=== PATIENT | male | born 1955 | race Caucasian/White ===

== ENCOUNTER 2016-12-16 17:06 | Observation (INO) | payer OTHER ==
[~2016-12-16] VITALS: Ht 185.4 cm; Wt 84.0 kg
[2016-12-16 17:07] VITALS: BP 129/68; PULSE 60; RESP 20; TEMP 98.5; O2SAT 99
--- NOTE | 2016-12-16 17:57 | PD ---
HPI Chief Complaint: Abdominal Pain Time Seen by Provider: 17:57 Travel History International Travel<30 days: No Contact w/Intl Traveler<30days: No Traveled to known affect area: No History of Present Illness HPI 61-year-old man with history of DVT and epilepsy ON LOVENOX presents to the ED for evaluation of approximately 7 hour history of right lower quadrant abdominal pain. Gradual onset after breakfast this morning. Described as constant, worsening throughout the course of the day, 6/10 on presentation. Patient denies fever, chills, decreased appetite, nausea, vomiting, melena, hematochezia, dysuria, back pain. He states that he has recently returned to exercising, running approximately 1 mile and doing calisthenics, including situps daily. He states that he noticed the pain after a few situps this morning. Patient is visiting from [place]. PFSH Past Medical History Hx Anticoagulant Therapy: Yes (LOVENOX (DVT)) Social History Tobacco Use: No Allergies-Medications (Allergen,Severity, Reaction): Coded Allergies: No Known Allergies (Unverified , 12/16/16) Reported Meds & Prescriptions Reported Meds & Active Scripts Active Reported Vitamin B-12 (Cyanocobalamin) 1,000 Mcg Tab 1,000 Mcg PO DAILY Folic Acid 5 Mg Cap 1 Mg PO DAILY Dilantin (Phenytoin Extended) 100 Mg Cap 400 Mg PO BID Keppra (Levetiracetam) 1,000 Mg Tab 1,500 Mg PO BID Review of Systems Except as stated in HPI: all other systems reviewed are Neg Physical Exam Narrative GENERAL: Well-nourished, well-developed white male, sitting up on the stretcher , in no acute distress. SKIN: Focused skin assessment warm/dry. HEAD: Normocephalic. EYES: No scleral icterus. No injection or drainage. NECK: Supple, trachea midline. No JVD or lymphadenopathy. CARDIOVASCULAR: Regular rate and rhythm without murmurs, gallops, or rubs. 2+ DP and radial pulses bilaterally. RESPIRATORY: Breath sounds clear and equal bilaterally. No accessory muscle use. GASTROINTESTINAL: Abdomen soft, nondistended. ++TTP in the RLQ and suprapubic areas. MUSCULOSKELETAL: No cyanosis. 2+ edema of RLE, patient states this is chronic. BACK: Nontender without obvious deformity. No CVA tenderness. Data Data Last Documented VS Vital Signs Date Time Temp Pulse Resp B/P Pulse Ox O2 Delivery O2 Flow Rate FiO2 12/16/16 19:58 98.1 66 18 136/63 96 12/16/16 18:45 Room Air Orders Complete Blood Count With Diff (12/16/16 18:04) Comprehensive Metabolic Panel (12/16/16 18:04) Prothrombin Time / Inr (Pt) (12/16/16 18:04) Act Partial Throm Time (Ptt) (12/16/16 18:04) Urinalysis - C+S If Indicated (12/16/16 18:04) Ct Abd/Pel W Iv Contrast(Rout) (12/16/16 18:04) Iv Access Insert/Monitor (12/16/16 18:04) Ecg Monitoring (12/16/16 18:04) Oximetry (12/16/16 18:04) NPO (12/16/16 18:04) Morphine Inj (Morphine Inj) (12/16/16 18:15) Ondansetron Inj (Zofran Inj) (12/16/16 18:15) Sodium Chlor 0.9% 1000 Ml Inj (Ns 1000 M (12/16/16 18:04) Sodium Chloride 0.9% Flush (Ns Flush) (12/16/16 18:15) Iohexol 350 Inj (Omnipaque 350 Inj) (12/16/16 19:02) Consult General Surgery (12/16/16 ) Admit Order (Ed Use Only) (12/16/16 20:35) Labs Laboratory Tests Test 12/16/16 12/16/16 18:45 20:00 White Blood Count 8.0 TH/MM3 Red Blood Count 4.15 MIL/MM3 Hemoglobin 13.1 GM/DL Hematocrit 40.1 % Mean Corpuscular Volume 96.4 FL Mean Corpuscular Hemoglobin 31.5 PG Mean Corpuscular Hemoglobin 32.7 % Concent Red Cell Distribution Width 14.1 % Platelet Count 138 TH/MM3 Mean Platelet Volume 10.0 FL Neutrophils (%) (Auto) 77.0 % Lymphocytes (%) (Auto) 14.8 % Monocytes (%) (Auto) 6.4 % Eosinophils (%) (Auto) 1.1 % Basophils (%) (Auto) 0.7 % Neutrophils # (Auto) 6.1 TH/MM3 Lymphocytes # (Auto) 1.2 TH/MM3 Monocytes # (Auto) 0.5 TH/MM3 Eosinophils # (Auto) 0.1 TH/MM3 Basophils # (Auto) 0.1 TH/MM3 CBC Comment DIFF FINAL Differential Comment Prothrombin Time 11.4 SEC Prothromb Time International 1.0 RATIO Ratio Activated Partial 21.5 SEC Thromboplast Time Sodium Level 140 MEQ/L Potassium Level 4.1 MEQ/L Chloride Level 104 MEQ/L Carbon Dioxide Level 26.9 MEQ/L Anion Gap 9 MEQ/L Blood Urea Nitrogen 18 MG/DL Creatinine 0.81 MG/DL Estimat Glomerular Filtration 97 ML/MIN Rate Random Glucose 89 MG/DL Calcium Level 9.1 MG/DL Total Bilirubin 0.3 MG/DL Aspartate Amino Transf 34 U/L (AST/SGOT) Alanine Aminotransferase 27 U/L (ALT/SGPT) Alkaline Phosphatase 105 U/L Total Protein 7.6 GM/DL Albumin 4.2 GM/DL Urine Color YELLOW Urine Turbidity CLEAR Urine pH 7.0 Urine Specific [place] 1.050 Urine Protein TRACE mg/dL Urine Glucose (UA) NEG mg/dL Urine Ketones 10 mg/dL Urine Occult Blood NEG Urine Nitrite NEG Urine Bilirubin NEG Urine Urobilinogen LESS THAN 2.0 MG/DL Urine Leukocyte Esterase NEG Urine RBC LESS THAN 1 /hpf Urine WBC LESS THAN 1 /hpf Urine Mucus FEW /lpf Microscopic Urinalysis Comment CULT NOT INDICATED MDM Medical Decision Making Medical Screen Exam Complete: Yes Emergency Medical Condition: Yes Differential Diagnosis muscle strain versus musculoskeletal pain versus appendicitis versus UTI versus nephroureterolithiasis versus other Narrative Course 61-year-old man with history of DVT and epilepsy ON LOVENOX presents to the ED for evaluation of approximately 7 hour history of right lower quadrant abdominal pain. Gradual onset after breakfast this morning. Described as constant, worsening throughout the course of the day, 01/19 on presentation. Patient denies fever, chills, decreased appetite, nausea, vomiting, melena, hematochezia, dysuria, back pain. He states that he has recently returned to exercising, running approximately 1 mile and doing calisthenics, including situps daily. He states that he noticed the pain after a few situps this morning. Patient is visiting from [place]. Vitals reviewed. Physical exam reveals a nontoxic appearing white male in no acute distress. There is tenderness in the suprapubic and right lower quadrant areas. IV is established. Patient was placed on continuous monitoring. He was administered a liter of normal saline, 4 mg morphine and 4 mg Zofran IV. CBC: Hgb 13.1 CMP: Within normal limits Coags: INR 1.0 UA: no culture indicated CT of the abdomen: 1. Right-sided lower rectus hematoma measuring up to 6.6 cm in AP diameter and over 13 cm in length. 2. Inferior vena cava filter present. 3. Mild constipation. I discussed the results of the workup with Dr. Lozano. Given that the patient is anticoagulated, she recommends admission to follow the hematoma and plan for anticoagulation. I spoke with Dr. Jaswinder Jeffries, the medical practitioners general surgeon, who is agreeable to this plan. I discussed this plan with the patient, who is agreeable to admission. Call placed to [facility]. Dr. Mcdonald agrees to accept the patient to the medicine service. Please see medicine and surgery notes for disposition. Diagnosis Primary Impression: Traumatic hematoma of abdominal wall Qualified Code: S30.1XXA - Traumatic hematoma of abdominal wall, initial encounter Carrie Tan December 16, 2016 17:57
[2016-12-16] MEDS ORDERED: SODIUM CHLOR 0.9% 1000 ML INJ 1,000 ML IV SCH (18:04)
[2016-12-16] MEDS ORDERED: MORPHINE SULFATE 4 MG/ML INJ IV PUSH ONE (18:15)
[2016-12-16] MEDS ORDERED: ONDANSETRON HCL 4 MG/2 ML VIAL IVP ONE (18:15)
[2016-12-16] MEDS ORDERED: SODIUM CHLORIDE 0.9% FLUSH 10 ML FLUSH IV FLUSH PRN ×2 (18:15→21:00)
[2016-12-16] MEDS ORDERED: FOLI5CAP PO (18:18)
[2016-12-16] MEDS ORDERED: DILA100C PO (18:18)
[2016-12-16] MEDS ORDERED: VITA10002 PO (18:18)
[2016-12-16] MEDS ORDERED: KEPP10002 PO (18:18)
[2016-12-16 18:45] VITALS: RESP 18; O2SAT 100
[2016-12-16] MEDS ORDERED: IOHEXOL 350 MG/ML 10 ML VIAL (for RAD DIAG) IV ONE (19:02)
[2016-12-16 19:10] LABS: AUTOMATED NEUTROPHIL # 6.1 TH/MM3 (1.8-7.7); BASOPHIL # 0.1 TH/MM3 (0-0.2); BASOPHIL % 0.7 % (0.0-2.0); EOSINOPHIL # 0.1 TH/MM3 (0-0.4); EOSINOPHIL % 1.1 % (0.0-4.0); HEMATOCRIT 40.1 % (39.0-51.0); LYMPH % 14.8 % (9.0-44.0); LYMPHOCYTE # 1.2 TH/MM3 (1.0-4.8); MEAN CELL VOLUME 96.4 FL (80.0-100.0); MEAN CORPUSCULAR HEMOGLOBIN 31.5 PG (27.0-34.0); MEAN CORPUSCULAR HGB CONC 32.7 % (32.0-36.0); MONO % 6.4 % (0.0-8.0); PLATELET COUNT 138 TH/MM3 (150-450); RED BLOOD COUNT 4.15 MIL/MM3 (4.50-5.90); RED CELL DISTRIBUTION WIDTH 14.1 % (11.6-17.2)
[2016-12-16 19:23] LABS: HEMO FLAGS DIFF FINAL
[2016-12-16 19:25] LABS: APTT (PATIENT) 21.5 SEC (24.3-30.1); PROTHROMBIN TIME - PATIENT 11.4 SEC (9.8-11.6)
[2016-12-16 19:33] LABS: ANION GAP 9 MEQ/L (5-15); AST (GOT) 34 U/L (15-37); BICARBONATE 26.9 MEQ/L (21.0-32.0); BLOOD UREA NITROGEN 18 MG/DL (7-18); CHLORIDE 104 MEQ/L (98-107); GLOMERULAR FILTRATION RATE 97 ML/MIN (>89); POTASSIUM 4.1 MEQ/L (3.5-5.1); SODIUM (NA) 140 MEQ/L (136-145)
[2016-12-16 19:36] LABS: ALKALINE PHOSPHATASE 105 U/L (45-117); ALT (GPT) 27 U/L (12-78); TOTAL BILIRUBIN ADULT 0.3 MG/DL (0.2-1.0)
--- NOTE | 2016-12-16 19:38 | RADRPT ---
EXAM DATE/TIME: 12/16/2016 19:05 [facility] COMPARISON: No previous studies available for comparison. INDICATIONS : Right lower abdominal pain. IV CONTRAST: 96 cc Omnipaque 350 (iohexol) IV ORAL CONTRAST: No oral contrast ingested. RADIATION DOSE: 7.47 CTDIvol (mGy) MEDICAL HISTORY : None SURGICAL HISTORY : None. ENCOUNTER: Initial ACUITY: 1 day PAIN SCALE: 6/10 LOCATION: Right lower quadrant TECHNIQUE: Volumetric scanning of the abdomen and pelvis was performed. Using automated exposure control and ad justment of the mA and/or kV according to patient size, radiation dose was kept as low as reasonably achievable to obtain optimal diagnostic quality images. FINDINGS: There is a rectus hematoma in the lower right rectus muscle measuring up to 6.6 cm in thickness and e xtending over a length of about 13 cm. Lung bases are clear. No acute findings in the liver, spleen, adrenals, kidneys or pancreas. Inferior vena cava filter is noted. Mild constipation. No free intraperitoneal fluid. No free air. CONCLUSION: 1. Right-sided lower rectus hematoma measuring up to 6.6 cm in AP diameter and over 13 cm in length. 2. Inferior vena cava filter present. 3. Mild constipation. Sergio Polanco MD on December 16, 2016 at 19:32 Board Certified Radiologist. This report was verified electronically.
[2016-12-16 19:58] VITALS: BP 136/63; PULSE 66; RESP 18; TEMP 98.1; O2SAT 96
[2016-12-16 20:33] LABS: BLOOD, URINE NEG (NEG); COMMENT (UR) CULT NOT INDICATED; CULTURE IF INDICATED CULT NOT INDICATED; GLUCOSE,URINE NEG (NEG); KETONE, URINE 10 mg/dL (NEG); MUCUS URINE FEW /lpf (OCC); NITRITE,URINE NEG (NEG); URINE COLOR YELLOW (YELLW/STRAW)
[2016-12-16] MEDS ORDERED: ONDANSETRON HCL 4 MG/2 ML VIAL IVP PRN (21:00)
[2016-12-16] MEDS ORDERED: NALOXONE HCL 0.4 MG/ML AMP IV PRN (21:00)
[2016-12-16] MEDS: SODIUM CHLORIDE 0.9% FLUSH 10 ML FLUSH IV FLUSH SCH (21:00)
--- NOTE | 2016-12-16 21:25 | HHI.HP ---
[facility] Service [facility] Primary Care Physician No Primary Care Physician Admission Diagnosis abdominal wall hematoma Diagnoses: (1) Hematoma of abdominal wall Chief Complaint: Right lower quadrant abdominal pain Travel History International Travel<30 Days: No Contact w/Intl Traveler <30 Da: No Traveled to Known Affected Are: No History of Present Illness Mr. 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 CT abd/pelvis showed right-sided lower rectus hematoma measuring up to 6.6 cm in AP diameter and over 13 cm in length. The patient is seen in the emergency room. He states that he recently started exercising and had done some sit ups on Saturday, , and Saturday. He took Saturday off because he flew to [place] from [place]. This morning, he did one sit up and experienced severe right lower quadrant pain. He was unable to perform any more as the day progressed, so did the pain until became severe enough for him to seek emergency medical treatment. He denies any accompanying nausea, vomiting, diarrhea, rash or black stools, syncope, chest pain, dizziness , or shortness of breath. 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 He has had multiple episodes of DVTs despite treatment. Coumadin was started but he was unable to be treated therapeutically as levels never increased despite increased dosing of Coumadin. Therefore, he was placed on Lovenox 100 mg subq daily and has been taking this for 10 years. He also had an IVC filter placed. 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 He is status post right temporal lobectomy for seizures. He did not require neurosurgery for the traumatic brain injury itself. He also underwent splenectomy following the fall. He says he is up-to- date on all of his vaccinations including pneumonia shot. He denies any history of hypertension, diabetes mellitus, coronary artery disease, congestive heart failure, atrial fibrillation, COPD or asthma, liver or kidney problems, or CVA. Keppra 500 mg tabs two in a.m and one in p.m. Dilantin 100 mg tabs two in a.m. and two in p.m. Lovenox 100 mg daily . Review of Systems Except as stated in HPI: all other systems reviewed are Neg Past Family Social History Past Medical History Epilepsy following traumatic brain injury 1989 Bilateral DVTs - multiple episodes . Past Surgical History Right temporal lobectomy tracheostomy PEG tube IVC filter placement Splenectomy . Reported Medications Keppra 500 mg tabs two in a.m and one in p.m. Dilantin 100 mg tabs two in a.m. and two in p.m. Lovenox 100 mg daily . Allergies: Coded Allergies: No Known Allergies (Unverified , 12/16/16) Active Ordered Medications Current Medications Morphine Sulfate (Morphine Inj) 4 mg ONCE ONCE IV PUSH Last administered on 19:38; Start 12/16/16 at 18:15; Stop 12/16/16 at 18:16; Status DC Ondansetron HCl 4 mg 4 mg ONCE ONCE IVP Last administered on 12/16/16 19:38; Start 12/16/16 at 18:15; Stop 12/16/16 at 18:16; Status DC Sodium Chloride (NS 1000 ml Inj) 1,000 ml @ 1,000 mls/hr Q1H IV Last administered on 12/16/16 19:37; Start 12/16/16 at 18:04; Stop 12/16/16 at 19:03; Status DC Sodium Chloride (NS Flush) 2 ml UNSCH PRN IV FLUSH FLUSH AFTER USING IV ACCESS ; Start 12/16/16 at 18:15 Iohexol (Omnipaque 350 Inj) 96 ml STK-MED ONCE IV Last administered on 19:02; Start 12/16/16 at 19:02; Stop 12/16/16 at 19:03; Status DC Sodium Chloride (NS Flush) 2 ml UNSCH PRN IV FLUSH FLUSH AFTER USING IV ACCESS ; Start 12/16/16 at 21:00; Status UNV Sodium Chloride (NS Flush) 2 ml BID IV FLUSH ; Start 12/16/16 at 21:00; Status UNV Ondansetron HCl (Zofran Inj) 4 mg Q6H PRN IVP NAUSEA OR VOMITING; Start at 21:00; Status UNV Naloxone HCl (Narcan Inj) 0.4 mg UNSCH PRN IV SEE LABEL COMMENTS; Start at 21:00; Status UNV Family History denies any significant family medical history; grandmother with history of blood clot . Social History Smoking - quit 40 years ago Alcohol - quit drinking 40 years ago - drank socially Illicit Drugs - denies Just arrived 12/15 and leaving 12/22 . Physical Exam Vital Signs Vital Signs Date Time Temp Pulse Resp B/P Pulse Ox O2 Delivery O2 Flow Rate FiO2 12/16/16 19:58 98.1 66 18 136/63 96 12/16/16 18:45 18 100 Room Air 12/16/16 17:07 98.5 60 20 129/68 99 Room Air Physical Exam GENERAL: This is a pleasant, well-nourished, well-developed patient, in no apparent distress. SKIN: No rashes, ecchymoses or lesions. Cool and dry. HEAD: Atraumatic. Normocephalic. EYES: No scleral icterus. No injection or drainage. ENT: Nose without bleeding, purulent drainage. NECK: Trachea midline. No JVD or lymphadenopathy. CARDIOVASCULAR: Regular rate and rhythm without murmurs, gallops, or rubs. RESPIRATORY: Clear to auscultation. Breath sounds equal bilaterally. No wheezes , rales, or rhonchi. lower leg with trace pitting edema; bilateral legs with swelling GASTROINTESTINAL: Abdomen normal bowel sounds, soft, nondistended. No guarding. MUSCULOSKELETAL: Extremities without clubbing, cyanosis. No calf tenderness. NEUROLOGICAL: Awake and alert. Motor and sensory grossly within normal limits. Speech stutters. Some difficulty recalling medication regimen. . Laboratory Laboratory Tests Test 12/16/16 12/16/16 18:45 20:00 White Blood Count 8.0 Red Blood Count 4.15 Hemoglobin 13.1 Hematocrit 40.1 Mean Corpuscular Volume 96.4 Mean Corpuscular Hemoglobin 31.5 Mean Corpuscular Hemoglobin 32.7 Concent Red Cell Distribution Width 14.1 Platelet Count 138 Mean Platelet Volume 10.0 Neutrophils (%) (Auto) 77.0 Lymphocytes (%) (Auto) 14.8 Monocytes (%) (Auto) 6.4 Eosinophils (%) (Auto) 1.1 Basophils (%) (Auto) 0.7 Neutrophils # (Auto) 6.1 Lymphocytes # (Auto) 1.2 Monocytes # (Auto) 0.5 Eosinophils # (Auto) 0.1 Basophils # (Auto) 0.1 CBC Comment DIFF FINAL Differential Comment Prothrombin Time 11.4 Prothromb Time International 1.0 Ratio Activated Partial 21.5 Thromboplast Time Sodium Level 140 Potassium Level 4.1 Chloride Level 104 Carbon Dioxide Level 26.9 Anion Gap 9 Blood Urea Nitrogen 18 Creatinine 0.81 Estimat Glomerular Filtration 97 Rate Random Glucose 89 Calcium Level 9.1 Total Bilirubin 0.3 Aspartate Amino Transf 34 (AST/SGOT) Alanine Aminotransferase 27 (ALT/SGPT) Alkaline Phosphatase 105 Total Protein 7.6 Albumin 4.2 Urine Color YELLOW Urine Turbidity CLEAR Urine pH 7.0 Urine Specific [place] 1.050 Urine Protein TRACE Urine Glucose (UA) NEG Urine Ketones 10 Urine Occult Blood NEG Urine Nitrite NEG Urine Bilirubin NEG Urine Urobilinogen LESS THAN 2.0 Urine Leukocyte Esterase NEG Urine RBC LESS THAN 1 Urine WBC LESS THAN 1 Urine Mucus FEW Microscopic Urinalysis Comment CULT NOT INDICATED Result Diagram: 12/16/16 18412/16/16 184 Imaging Last Impressions Abdomen/Pelvis CT 12/16/161803 Signed Impressions: Service Date/Time: Friday, December 16, 2016 19:05 - CONCLUSION: 1. Right-sided lower rectus hematoma measuring up to 6.6 cm in AP diameter and over 13 cm in length. 2. Inferior vena cava filter present. 3. Mild constipation. Sergio Polanco MD . Assessment and Plan Problem List: (1) Hematoma of abdominal wall ICD Code: S30.1XXA Status: Acute (2) Seizures ICD Code: R56.9 Status: Acute (3) History of DVT (deep vein thrombosis) ICD Code: Z86.718 Status: Resolved Assessment and Plan Mr. 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 CT abd/pelvis showed right-sided lower rectus hematoma measuring up to 6.6 cm in AP diameter and over 13 cm in length. Hematoma of rectus muscle - exact etiology is uncertain but patient reports pain in right lower abdomen started after performing a sit up today - serial H&Hs, follow trends - transfuse if necessary - general surgery consulted - PA in ER spoke with Dr. Jeffries - will see in a.m. - monitor vital signs every 4 hours History of bilateral lower extremity DVTs - Has IVC filter - will need to hold Lovenox for now due to rectus muscle hematoma Seizures - resume home antiepileptic medications Written by Hui Biggs, acting as scribe for Dr. Mcdonald on 12/16/16 at 21:23. .This note was transcribed by scribe [Hui Biggs]. I, Dr. Isabell Mcdonald personally performed the history, physical exam, and medical decision making; and confirmed the accuracy of the information in the transcribed note. Authenticated by Dr. Isabell Mcdonald on 12/16/16 at 21:23. Discussed Condition With Patient and ER PA . Problem Qualifiers (1) Hematoma of abdominal wall: Qualified Code: S30.1XXA - Hematoma of abdominal wall, initial encounter Hui Biggs December 16, 2016 21:25 Isabell Mcdonald MD December 17, 2016 07:08
[2016-12-16 21:37] VITALS: BP 113/57
[2016-12-16 22:06] VITALS: BP 137/60; PULSE 78; RESP 20; TEMP 97.6; O2SAT 99
[2016-12-16 23:14] VITALS: PULSE 65
[2016-12-17] VITALS (8 sets, daily range): BP systolic 101–137; BP diastolic 57–84; PULSE 60–96; RESP 16–22; TEMP 97.6–99.2; O2SAT 95–99
[2016-12-17] MEDS: levETIRAcetam 500 MG TAB PO SCH ×3 (00:53→21:34)
[2016-12-17 04:11] LABS: AUTOMATED NEUTROPHIL # 3.8 TH/MM3 (1.8-7.7); BASOPHIL % 0.7 % (0.0-2.0); EOSINOPHIL # 0.1 TH/MM3 (0-0.4); EOSINOPHIL % 1.2 % (0.0-4.0); HEMO FLAGS DIFF FINAL; LYMPH % 28.9 % (9.0-44.0); LYMPHOCYTE # 1.9 TH/MM3 (1.0-4.8); MEAN CELL VOLUME 96.4 FL (80.0-100.0); MEAN CORPUSCULAR HEMOGLOBIN 32.7 PG (27.0-34.0); MEAN CORPUSCULAR HGB CONC 33.9 % (32.0-36.0); MONO % 10.1 % (0.0-8.0); NEUT % 59.1 % (16.0-70.0); PLATELET COUNT 161 TH/MM3 (150-450); RED BLOOD COUNT 3.52 MIL/MM3 (4.50-5.90); RED CELL DISTRIBUTION WIDTH 13.9 % (11.6-17.2); WHITE BLOOD COUNT 6.4 TH/MM3 (4.0-11.0)
[2016-12-17 04:33] LABS: BICARBONATE 27.7 MEQ/L (21.0-32.0); POTASSIUM 3.6 MEQ/L (3.5-5.1)
--- NOTE | 2016-12-17 04:46 | MB ---
cc: WILSON HERNÁNDEZ MD DATE OF CONSULTATION 12/16/2016 REASON FOR CONSULTATION Abdominal pain, abdominal wall hematoma. HISTORY OF PRESENT ILLNESS The patient is a 61-year-old male with several medical issues including history of seizures, history of DVT, currently on Lovenox for multiple DVTs, currently with IVC filter. The patient complains of abdominal pain of acute onset which started after doing several sit-ups to the right lower abdomen. The patient states his pain was initially an 8/10 and it feels better, is a 4/10 now with IV pain medication. It is worse with moving and palpation, better when lying still. He has never had pain quite this severe before and came to emergency department for further evaluation including CT scan with showing of rectus right-sided abdominal hematoma, 6 cm x 13 cm. Surgery was consulted for further evaluation. On my exam the patient's vital signs were stable. His hemoglobin was 13.1 and his coags are within normal limits. He is stating continued pain but that does improve with medication. CT exam reviewed by myself without obvious extravasation of contrast. Again, the patient is hemodynamically stable. The patient does state his pain is somewhat severe but is improving. The pain radiates on the right side. The patient denies fevers, chills, nausea or vomiting. PAST MEDICAL HISTORY 1. Seizures. 2. Epilepsy. 3. Multiple DVTs. PAST SURGICAL HISTORY 1. Right temporal lobectomy. 2. Tracheostomy. 3. PEG. 4. IVC filter. 5. Splenectomy. MEDICATIONS See EMR. ALLERGIES No known drug allergies. FAMILY HISTORY Denies diabetes or hypertension. Grandmother with history of DVT. SOCIAL HISTORY Distant history of smoking, quit 40 years ago. Quit EtOH 40 years ago. Denies IVDA. REVIEW OF SYSTEMS GENERAL: The patient denies headaches. HEENT: Denies eye pain, ear pain. NECK: Denies swelling or pain. RESPIRATIONS: No noted cough or wheeze. CARDIAC: Denies palpitations or chest pain. ABDOMEN: Complains of abdominal pain. Denies nausea, vomiting. HEMATOLOGIC: Coagulopathy. DVT. ENDOCRINE: Denies polyuria, polydipsia. : Denies dysuria or hematuria. INTEGUMENT: Denies obvious skin masses or lesions. PHYSICAL EXAMINATION GENERAL: The patient in no acute distress. VITAL SIGNS: Temperature 98.1, pulse 66, respirations 18, blood pressure 136/63, pulse ox 96% on room air. HEENT: PERRLA, EOMI. NECK: Supple. Trachea midline. Well-healed tracheostomy scar. LUNGS: Bilateral expansion. Clear. HEART: S1-S2 regular. ABDOMEN: Soft. Positive tenderness to palpation right-sided rectus. No rebound or guarding. EXTREMITIES: Bilateral lower extremity edema. Warm, well-perfused. NEUROLOGIC: GCS of 15. Moving all extremities. PSYCH: History of seizure. Good insight. LABORATORY AND DIAGNOSTIC DATA WBC is 8, hemoglobin 13.1, hematocrit 44.1, platelets 138. PT is 1.4, INR is 1, PTT 21.5. Sodium 140, potassium 4.1, chloride 104. BUN is 18, creatinine 0.81, AST 34, ALT 27, alk phos 105, albumin 4.2. IMAGING STUDIES CT scan reviewed by myself - Right-sided rectus hematoma 6.6 x 13 cm, filter present. Stool in colon. No obvious extravasation. ASSESSMENT The patient is a 61-year-old male with several medical issues - History of multiple DVTs on Lovenox, now with rectus hematoma. PLAN 1. After a full clinical and radiologic and laboratory workup, the patient with above-named issues including abdominal rectus hematoma at this point. We will trial nonoperative management, observation, abdominal exams. We will continue to monitor blood levels and coags for evidence of further bleeding. As long as the patient stays stable, this will likely resolve and resorb on its own. Again, we will continue to monitor this closely. This was discussed with the patient in detail. 2. The patient can restart his seizure medications. 3. Hold Lovenox for now. MD JON Sewell/JOSEMANUEL /11:05 PM /4:32 AM
--- NOTE | 2016-12-17 07:51 | HHI.PR ---
Subjective Remarks resting comfortably with no distress. abdominal pain is mild. no other complaints. Objective Vitals Vital Signs Date Time Temp Pulse Resp B/P Pulse Ox O2 Delivery O2 Flow Rate FiO2 12/17/16 04:00 98.0 61 20 111/61 99 12/17/16 00:20 97.6 78 20 137/60 99 12/16/16 23:14 65 12/16/16 22:06 97.6 78 20 137/60 99 12/16/16 21:37 70 16 113/57 98 12/16/16 19:58 98.1 66 18 136/63 96 12/16/16 18:45 18 100 Room Air 12/16/16 17:07 98.5 60 20 129/68 99 Room Air Result Diagram: 12/17/16 0343 12/17/16 0343 Imaging Last Impressions Abdomen/Pelvis CT 12/16/16 1804 Signed Impressions: Service Date/Time: Friday, December 16, 2016 19:05 - CONCLUSION: 1. Right-sided lower rectus hematoma measuring up to 6.6 cm in AP diameter and over 13 cm in length. 2. Inferior vena cava filter present. 3. Mild constipation. Sergio Polanco MD Objective Remarks GENERAL: This is a well-nourished, well-developed patient, in no apparent distress. CARDIOVASCULAR: Regular rate and regular rhythm without murmurs, gallops, or rubs. RESPIRATORY: Clear to auscultation. Breath sounds equal bilaterally. No wheezes , rales, or rhonchi. GASTROINTESTINAL: mild generalized abdominal tenderness MUSCULOSKELETAL: Extremities without clubbing, cyanosis, or edema. NEURO: Alert & Oriented x4 to person, place, time, situation. Moves all ext x4 Procedures none Medications and IVs Current Medications Morphine Sulfate (Morphine Inj) 4 mg ONCE ONCE IV PUSH Last administered on 19:38; Start 12/16/16 at 18:15; Stop 12/16/16 at 18:16; Status DC Ondansetron HCl 4 mg 4 mg ONCE ONCE IVP Last administered on 12/16/16 19:38; Start 12/16/16 at 18:15; Stop 12/16/16 at 18:16; Status DC Sodium Chloride (NS 1000 ml Inj) 1,000 ml @ 1,000 mls/hr Q1H IV Last administered on 12/16/16 19:37; Start 12/16/16 at 18:04; Stop 12/16/16 at 19:03; Status DC Sodium Chloride (NS Flush) 2 ml UNSCH PRN IV FLUSH FLUSH AFTER USING IV ACCESS ; Start 12/16/16 at 18:15; Stop 12/16/16 at 21:04; Status DC Iohexol (Omnipaque 350 Inj) 96 ml STK-MED ONCE IV Last administered on 19:02; Start 12/16/16 at 19:02; Stop 12/16/16 at 19:03; Status DC Sodium Chloride (NS Flush) 2 ml UNSCH PRN IV FLUSH FLUSH AFTER USING IV ACCESS ; Start 12/16/16 at 21:00 Sodium Chloride (NS Flush) 2 ml BID IV FLUSH ; Start 12/16/16 at 21:00 Ondansetron HCl (Zofran Inj) 4 mg Q6H PRN IVP NAUSEA OR VOMITING; Start at 21:00 Naloxone HCl (Narcan Inj) 0.4 mg UNSCH PRN IV SEE LABEL COMMENTS; Start at 21:00 Levetriacetam (Keppra) 500 mg HS PO Last administered on 12/17/16 00:53; Start 12/17/16 at 00:30 Levetriacetam (Keppra) 1,000 mg DAILY PO ; Start 12/17/16 at 09:00 Phenytoin (Dilantin) 100 mg QID PO ; Start 12/17/16 at 09:00 A/P Assessment and Plan A/P Hematoma of rectus muscle - exact etiology is uncertain but patient reports pain in right lower abdomen started after performing a sit up . - serial H&Hs, follow trends - transfuse if necessary - general surgery consult appreciated; will observe for now. - monitor vital signs closely. 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
[2016-12-17] MEDS: SODIUM CHLORIDE 0.9% FLUSH 10 ML FLUSH IV FLUSH SCH ×2 (08:41→21:00)
[2016-12-17] MEDS: PHENYTOIN SODIUM 100 MG CAP PO SCH ×4 (08:41→21:34)
[2016-12-17 11:49] LABS: HEMATOCRIT 36.2 % (39.0-51.0); REVIEW FLAG FINAL
[2016-12-17 17:25] LABS: HEMATOCRIT 35.8 % (39.0-51.0); REVIEW FLAG FINAL
--- NOTE | 2016-12-17 19:13 | HHI.PR ---
Subjective Subjective Notes Resting in bed Objective Vitals/I&O Vital Signs Date Time Temp Pulse Resp B/P Pulse Ox O2 Delivery O2 Flow Rate FiO2 12/17/16 16:08 98.8 60 16 107/58 96 12/16/16 18:45 Room Air Labs Laboratory Tests Test 12/16/16 12/17/16 12/17/16 12/17/16 20:00 03:43 11:25 16:57 Urine Color YELLOW Urine Turbidity CLEAR Urine pH 7.0 Urine Specific [place] 1.050 Urine Protein TRACE Urine Glucose (UA) NEG Urine Ketones 10 Urine Occult Blood NEG Urine Nitrite NEG Urine Bilirubin NEG Urine Urobilinogen LESS THAN 2.0 Urine Leukocyte Esterase NEG Urine RBC LESS THAN 1 Urine WBC LESS THAN 1 Urine Mucus FEW Microscopic Urinalysis Comment CULT NOT INDICATED White Blood Count 6.4 Red Blood Count 3.52 Hemoglobin 11.5 11.8 11.7 Hematocrit 34.0 36.2 35.8 Mean Corpuscular Volume 96.4 Mean Corpuscular Hemoglobin 32.7 Mean Corpuscular Hemoglobin 33.9 Concent Red Cell Distribution Width 13.9 Platelet Count 161 Mean Platelet Volume 8.7 Neutrophils (%) (Auto) 59.1 Lymphocytes (%) (Auto) 28.9 Monocytes (%) (Auto) 10.1 Eosinophils (%) (Auto) 1.2 Basophils (%) (Auto) 0.7 Neutrophils # (Auto) 3.8 Lymphocytes # (Auto) 1.9 Monocytes # (Auto) 0.7 Eosinophils # (Auto) 0.1 Basophils # (Auto) 0.0 CBC Comment DIFF FINAL Differential Comment Sodium Level 144 Potassium Level 3.6 Chloride Level 109 Carbon Dioxide Level 27.7 Anion Gap 7 Blood Urea Nitrogen 15 Creatinine 0.61 Estimat Glomerular Filtration 135 Rate Random Glucose 80 Calcium Level 8.5 Cardiovascular: Regular Lungs: Clear Abdomen: Other (LLQ hematoma ) Extremities: No edema A/P Assessment and Plan 61 year old male with hx of DVT on Lovenox with abdominal wall hematoma -Lovenox on hold -Advance diet as tolerated -OOB and mobilize -Continue to follow abdominal exams -Continue non op treatment Attending Statement patient seen at bedside non ob observe hematoma and hh Attestation The exam, history, and the medical decision-making described in the above note were completed with the assistance of the mid-level provider. I reviewed and agree with the findings presented. I attest that I had a [id number] encounter with the patient on the same day, and personally performed and documented my assessment and findings in the medical record. Sunshine Andino December 17, 2016 19:13 Jaswinder Jeffries MD Jan 19, 2017 22:16
--- NOTE | 2016-12-17 19:18 | HHI.PR ---
Subjective Subjective Notes Resting in bed Reports pain is significantly better today Objective Vitals/I&O Vital Signs Date Time Temp Pulse Resp B/P Pulse Ox O2 Delivery O2 Flow Rate FiO2 12/17/16 16:08 98.8 60 16 107/58 96 12/16/16 18:45 Room Air Labs Laboratory Tests Test 12/16/16 12/17/16 12/17/16 12/17/16 20:00 03:43 11:25 16:57 Urine Color YELLOW Urine Turbidity CLEAR Urine pH 7.0 Urine Specific [place] 1.050 Urine Protein TRACE Urine Glucose (UA) NEG Urine Ketones 10 Urine Occult Blood NEG Urine Nitrite NEG Urine Bilirubin NEG Urine Urobilinogen LESS THAN 2.0 Urine Leukocyte Esterase NEG Urine RBC LESS THAN 1 Urine WBC LESS THAN 1 Urine Mucus FEW Microscopic Urinalysis Comment CULT NOT INDICATED White Blood Count 6.4 Red Blood Count 3.52 Hemoglobin 11.5 11.8 11.7 Hematocrit 34.0 36.2 35.8 Mean Corpuscular Volume 96.4 Mean Corpuscular Hemoglobin 32.7 Mean Corpuscular Hemoglobin 33.9 Concent Red Cell Distribution Width 13.9 Platelet Count 161 Mean Platelet Volume 8.7 Neutrophils (%) (Auto) 59.1 Lymphocytes (%) (Auto) 28.9 Monocytes (%) (Auto) 10.1 Eosinophils (%) (Auto) 1.2 Basophils (%) (Auto) 0.7 Neutrophils # (Auto) 3.8 Lymphocytes # (Auto) 1.9 Monocytes # (Auto) 0.7 Eosinophils # (Auto) 0.1 Basophils # (Auto) 0.0 CBC Comment DIFF FINAL Differential Comment Sodium Level 144 Potassium Level 3.6 Chloride Level 109 Carbon Dioxide Level 27.7 Anion Gap 7 Blood Urea Nitrogen 15 Creatinine 0.61 Estimat Glomerular Filtration 135 Rate Random Glucose 80 Calcium Level 8.5 Cardiovascular: Regular Lungs: Clear Abdomen: Non-distended, Non-tender Extremities: No edema A/P Assessment and Plan 61 year old male with hx of DVT on Lovenox with abdominal wall hematoma -Lovenox on hold -Diet as tolerated -OOB and mobilize -Continue to follow abdominal exams -Continue non op treatment Attending Statement patient seen at bedside hh stable, abd pain better c/w non op mgnt Attestation The exam, history, and the medical decision-making described in the above note were completed with the assistance of the mid-level provider. I reviewed and agree with the findings presented. I attest that I had a [id number] encounter with the patient on the same day, and personally performed and documented my assessment and findings in the medical record. Sunshine Andino December 17, 2016 19:18 Jaswinder Jeffries MD December 22, 2016 17:16
[2016-12-18 04:08] VITALS: BP 106/58; PULSE 64; RESP 18; TEMP 98.7; O2SAT 99
[2016-12-18 07:48] VITALS: BP 107/56; PULSE 55; RESP 17; TEMP 98.6; O2SAT 97
[2016-12-18 08:45] VITALS: PULSE 71
[2016-12-18] MEDS: PHENYTOIN SODIUM 100 MG CAP PO SCH ×4 (09:01→21:11)
[2016-12-18] MEDS: levETIRAcetam 500 MG TAB PO SCH ×2 (09:01→21:11)
[2016-12-18] MEDS: SODIUM CHLORIDE 0.9% FLUSH 10 ML FLUSH IV FLUSH SCH ×2 (09:02→21:00)
--- NOTE | 2016-12-18 09:31 | HHI.PR ---
Subjective Remarks resting comfortably with no distress. denies abdominal pain. no chest pain or sob. Objective Vitals Vital Signs Date Time Temp Pulse Resp B/P Pulse Ox O2 Delivery O2 Flow Rate FiO2 12/18/16 07:48 98.6 55 17 107/56 97 12/18/16 04:08 98.7 64 18 106/58 99 12/17/16 23:34 98.6 65 18 114/57 97 12/17/16 19:57 99.2 96 18 101/57 95 12/17/16 16:08 98.8 60 16 107/58 96 12/17/16 11:36 98.9 61 22 106/59 95 I/O 12/17/16 12/17/16 12/17/16 12/18/16 12/18/16 12/18/16 07:00 15:00 23:00 07:00 15:00 23:00 Intake Total 200 ml Balance 200 ml Intake Oral 200 ml Result Diagram: 12/17/16 1657 12/17/16 0343 Imaging Last Impressions Abdomen/Pelvis CT 12/16/16 1804 Signed Impressions: Service Date/Time: Friday, December 16, 2016 19:05 - CONCLUSION: 1. Right-sided lower rectus hematoma measuring up to 6.6 cm in AP diameter and over 13 cm in length. 2. Inferior vena cava filter present. 3. Mild constipation. Sergio Polanco MD Objective Remarks GENERAL: This is a well-nourished, well-developed patient, in no apparent distress. CARDIOVASCULAR: Regular rate and regular rhythm without murmurs, gallops, or rubs. RESPIRATORY: Clear to auscultation. Breath sounds equal bilaterally. No wheezes , rales, or rhonchi. GASTROINTESTINAL: mild generalized abdominal tenderness MUSCULOSKELETAL: Extremities without clubbing, cyanosis, or edema. NEURO: Alert & Oriented x4 to person, place, time, situation. Moves all ext x4 Procedures none Medications and IVs Current Medications Morphine Sulfate (Morphine Inj) 4 mg ONCE ONCE IV PUSH Last administered on 19:38; Start 12/16/16 at 18:15; Stop 12/16/16 at 18:16; Status DC Ondansetron HCl 4 mg 4 mg ONCE ONCE IVP Last administered on 12/16/16 19:38; Start 12/16/16 at 18:15; Stop 12/16/16 at 18:16; Status DC Sodium Chloride (NS 1000 ml Inj) 1,000 ml @ 1,000 mls/hr Q1H IV Last administered on 12/16/16 19:37; Start 12/16/16 at 18:04; Stop 12/16/16 at 19:03; Status DC Sodium Chloride (NS Flush) 2 ml UNSCH PRN IV FLUSH FLUSH AFTER USING IV ACCESS ; Start 12/16/16 at 18:15; Stop 12/16/16 at 21:04; Status DC Iohexol (Omnipaque 350 Inj) 96 ml STK-MED ONCE IV Last administered on 19:02; Start 12/16/16 at 19:02; Stop 12/16/16 at 19:03; Status DC Sodium Chloride (NS Flush) 2 ml UNSCH PRN IV FLUSH FLUSH AFTER USING IV ACCESS ; Start 12/16/16 at 21:00 Sodium Chloride (NS Flush) 2 ml BID IV FLUSH Last administered on 12/18/16 09: 02; Start 12/16/16 at 21:00 Ondansetron HCl (Zofran Inj) 4 mg Q6H PRN IVP NAUSEA OR VOMITING; Start at 21:00 Naloxone HCl (Narcan Inj) 0.4 mg UNSCH PRN IV SEE LABEL COMMENTS; Start at 21:00 Levetriacetam (Keppra) 500 mg HS PO Last administered on 12/17/16 21:34; Start 12/17/16 at 00:30 Levetriacetam (Keppra) 1,000 mg DAILY PO Last administered on 12/18/16 09:01; Start 12/17/16 at 09:00 Phenytoin (Dilantin) 100 mg QID PO Last administered on 12/18/16 09:01; Start 12/17/16 at 09:00 A/P Assessment and Plan A/P Hematoma of rectus muscle - exact etiology is uncertain but patient reports pain in right lower abdomen started after performing a sit up . - H/H fairly stable - transfuse if necessary - general surgery consult appreciated; will observe for now. - monitor vital signs closely. History of bilateral lower extremity DVTs - Has IVC filter - continue to hold Lovenox for now due to rectus muscle hematoma Seizures - resumed home antiepileptic medications Discharge Planning possible dc home within the next 24 hrs if stable. d/w his food aide; [phone] ( 's [place]). Angela Pandya MD December 18, 2016 09:31
[2016-12-18 11:18] VITALS: BP 98/63; PULSE 63; RESP 18; TEMP 98.3; O2SAT 96
[2016-12-18 15:23] VITALS: BP 108/58; PULSE 63; RESP 15; TEMP 98.2; O2SAT 98
--- NOTE | 2016-12-18 16:47 | HHI.PR ---
Subjective Subjective Notes Resting in bed No issues overnight Objective Vitals/I&O Vital Signs Date Time Temp Pulse Resp B/P Pulse Ox O2 Delivery O2 Flow Rate FiO2 12/18/16 15:23 98.2 63 15 108/58 98 12/16/16 18:45 Room Air Labs Laboratory Tests Test 12/17/16 12/18/16 16:57 10:21 Hemoglobin 11.7 11.7 Hematocrit 35.8 36.0 Cardiovascular: Regular Lungs: Clear Abdomen: Other (minimal tenderness with palpation) Extremities: No edema A/P Assessment and Plan 61 year old male with hx of DVT on Lovenox with abdominal wall hematoma -Lovenox on hold -Diet as tolerated -OOB and mobilize -Continue to follow abdominal exams---showing improvement -Continue non op treatment -DC planning Attending Statement patient seen at bedside stable hh stable abd pain improving Attestation The exam, history, and the medical decision-making described in the above note were completed with the assistance of the mid-level provider. I reviewed and agree with the findings presented. I attest that I had a [id number] encounter with the patient on the same day, and personally performed and documented my assessment and findings in the medical record. Sunshine Andino December 18, 2016 16:47 Jaswinder Jeffries MD December 23, 2016 18:28
[2016-12-18 19:26] VITALS: BP 118/59; PULSE 66; RESP 20; TEMP 98.1; O2SAT 100
[2016-12-19 00:56] VITALS: BP 108/57; PULSE 65; RESP 21; TEMP 98.2; O2SAT 97
[2016-12-19 04:15] VITALS: BP 120/84; PULSE 92; RESP 20; TEMP 98.2; O2SAT 100
[2016-12-19 07:22] VITALS: BP 101/56; PULSE 52; RESP 18; TEMP 98.1; O2SAT 97
--- NOTE | 2016-12-19 07:45 | HHI.PR ---
Subjective Remarks resting comfortably with no distress. no abdominal pain. overall doing fine. Objective Vitals Vital Signs Date Time Temp Pulse Resp B/P Pulse Ox O2 Delivery O2 Flow Rate FiO2 12/19/16 07:22 98.1 52 18 101/56 97 12/19/16 04:15 98.2 92 20 120/84 100 12/19/16 00:56 98.2 65 21 108/57 97 12/18/16 19:26 98.1 66 20 118/59 100 12/18/16 15:23 98.2 63 15 108/58 98 12/18/16 11:18 98.3 63 18 98/63 96 12/18/16 08:45 71 12/18/16 07:48 98.6 55 17 107/56 97 I/O 12/18/16 12/18/16 12/18/16 12/19/16 12/19/16 12/19/16 06:59 14:59 22:59 06:59 14:59 22:59 Intake Total 400 ml Balance 400 ml Intake Oral 400 ml Result Diagram: 12/18/16 1021 12/17/16 0343 Imaging Last Impressions Abdomen/Pelvis CT 12/16/16 1804 Signed Impressions: Service Date/Time: Friday, December 16, 2016 19:05 - CONCLUSION: 1. Right-sided lower rectus hematoma measuring up to 6.6 cm in AP diameter and over 13 cm in length. 2. Inferior vena cava filter present. 3. Mild constipation. Sergio Polanco MD Objective Remarks GENERAL: This is a well-nourished, well-developed patient, in no apparent distress. CARDIOVASCULAR: Regular rate and regular rhythm without murmurs, gallops, or rubs. RESPIRATORY: Clear to auscultation. Breath sounds equal bilaterally. No wheezes , rales, or rhonchi. GASTROINTESTINAL: abdomen is soft with no tenderness MUSCULOSKELETAL: Extremities without clubbing, cyanosis, or edema. NEURO: Alert & Oriented x4 to person, place, time, situation. Moves all ext x4 Procedures none Medications and IVs Current Medications Morphine Sulfate (Morphine Inj) 4 mg ONCE ONCE IV PUSH Last administered on t 19:38; Start 12/16/16 at 18:15; Stop 12/16/16 at 18:16; Status DC Ondansetron HCl 4 mg 4 mg ONCE ONCE IVP Last administered on 12/16/16 19:38; Start 12/16/16 at 18:15; Stop 12/16/16 at 18:16; Status DC Sodium Chloride (NS 1000 ml Inj) 1,000 ml @ 1,000 mls/hr Q1H IV Last administered on 12/16/16 19:37; Start 12/16/16 at 18:04; Stop 12/16/16 at 19:03; Status DC Sodium Chloride (NS Flush) 2 ml UNSCH PRN IV FLUSH FLUSH AFTER USING IV ACCESS ; Start 12/16/16 at 18:15; Stop 12/16/16 at 21:04; Status DC Iohexol (Omnipaque 350 Inj) 96 ml STK-MED ONCE IV Last administered on 19:02; Start 12/16/16 at 19:02; Stop 12/16/16 at 19:03; Status DC Sodium Chloride (NS Flush) 2 ml UNSCH PRN IV FLUSH FLUSH AFTER USING IV ACCESS ; Start 12/16/16 at 21:00 Sodium Chloride (NS Flush) 2 ml BID IV FLUSH Last administered on 12/18/16 21: 00; Start 12/16/16 at 21:00 Ondansetron HCl (Zofran Inj) 4 mg Q6H PRN IVP NAUSEA OR VOMITING; Start at 21:00 Naloxone HCl (Narcan Inj) 0.4 mg UNSCH PRN IV SEE LABEL COMMENTS; Start at 21:00 Levetriacetam (Keppra) 500 mg HS PO Last administered on 12/18/16 21:11; Start 12/17/16 at 00:30 Levetriacetam (Keppra) 1,000 mg DAILY PO Last administered on 12/18/16 09:01; Start 12/17/16 at 09:00 Phenytoin (Dilantin) 100 mg QID PO Last administered on 12/18/16 21:11; Start 12/17/16 at 09:00 A/P Assessment and Plan A/P Hematoma of rectus muscle - exact etiology is uncertain but patient reports pain in right lower abdomen started after performing a sit up . - H/H fairly stable - - general surgery consult appreciated; will observe for now. -lovenox on hold History of bilateral lower extremity DVTs - Has IVC filter - continue to hold Lovenox for now due to rectus muscle hematoma Seizures - resumed home antiepileptic medications Discharge Planning dc home likely today- if ok with surgery. see med list. f/u with pcp and hematology. d/w the patient and previously with his c python developer. Angela Pandya MD December 19, 2016 07:45
--- NOTE | 2016-12-19 07:46 | HHI.DCPOC ---
Discharge Care Plan Diagnosis: (1) Hematoma of abdominal wall Your Health Problems Are: Bleeding Tendency Goals to Promote Your Health * To prevent worsening of your condition and complications * To maintain your health at the optimal level Directions to Meet Your Goals Take your medications as prescribed Follow your dietary instruction Follow activity as directed Keep your appointments as scheduled Take your immunizations and boosters as scheduled If your symptoms worsen call your PCP, if no PCP go to Urgent Care Center or Emergency Room Smoking is Dangerous to Your Health. Avoid second hand smoke Call the 24-hour hour crisis hotline for domestic abuse at Angela Pandya MD December 19, 2016 07:45
--- NOTE | 2016-12-19 07:46 | HHI.DS ---
Discharge Summary Admission Date December 16, 2016 at 20:38 Discharge Date: December 19, 2016 Admitting Diagnosis abdominal wall hematoma (1) Hematoma of abdominal wall ICD Code: S30.1XXA Diagnosis: Principal (2) Seizures ICD Code: R56.9 Diagnosis: Secondary (3) History of DVT (deep vein thrombosis) ICD Code: Z86.718 Diagnosis: Secondary Procedures none Brief History - From Admission Mr. 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 CT abd/pelvis showed right-sided lower rectus hematoma measuring up to 6.6 cm in AP diameter and over 13 cm in length. The patient is seen in the emergency room. He states that he recently started exercising and had done some sit ups on Saturday, , and Saturday. He took Saturday off because he flew to [place] from [place]. This morning, he did one sit up and experienced severe right lower quadrant pain. He was unable to perform any more as the day progressed, so did the pain until became severe enough for him to seek emergency medical treatment. He denies any accompanying nausea, vomiting, diarrhea, rash or black stools, syncope, chest pain, dizziness , or shortness of breath. 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 He has had multiple episodes of DVTs despite treatment. Coumadin was started but he was unable to be treated therapeutically as levels never increased despite increased dosing of Coumadin. Therefore, he was placed on Lovenox 100 mg subq daily and has been taking this for 10 years. He also had an IVC filter placed. 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 He is status post right temporal lobectomy for seizures. He did not require neurosurgery for the traumatic brain injury itself. He also underwent splenectomy following the fall. He says he is up-to- date on all of his vaccinations including pneumonia shot. He denies any history of hypertension, diabetes mellitus, coronary artery disease, congestive heart failure, atrial fibrillation, COPD or asthma, liver or kidney problems, or CVA. Keppra 500 mg tabs two in a.m and one in p.m. Dilantin 100 mg tabs two in a.m. and two in p.m. Lovenox 100 mg daily . CBC/BMP: 12/18/16 1021 12/17/16 0343 Significant Findings Laboratory Tests Test 12/16/16 12/16/16 12/17/16 12/17/16 18:45 20:00 03:43 11:25 Red Blood Count 4.15 MIL/MM3 3.52 MIL/MM3 (4.50-5.90) (4.50-5.90) Platelet Count 138 TH/MM3 (150-450) Neutrophils (%) (Auto) 77.0 % (16.0-70.0) Activated Partial 21.5 SEC Thromboplast Time (24.3-30.1) Urine Specific [place] 1.050 (1.002-1.035) Urine Ketones 10 mg/dL (NEG) Urine Mucus FEW /lpf (OCC) Hemoglobin 11.5 GM/DL 11.8 GM/DL (13.0-17.0) (13.0-17.0) Hematocrit 34.0 % 36.2 % (39.0-51.0) (39.0-51.0) Monocytes (%) (Auto) 10.1 % (0.0-8.0) Chloride Level 109 MEQ/L (98-107) Test 12/17/16 12/18/16 16:57 10:21 Hemoglobin 11.7 GM/DL 11.7 GM/DL (13.0-17.0) (13.0-17.0) Hematocrit 35.8 % 36.0 % (39.0-51.0) (39.0-51.0) Imaging Last Impressions Abdomen/Pelvis CT 12/16/16 3087 Signed Impressions: Service Date/Time: Friday, December 16, 2016 19:05 - CONCLUSION: 1. Right-sided lower rectus hematoma measuring up to 6.6 cm in AP diameter and over 13 cm in length. 2. Inferior vena cava filter present. 3. Mild constipation. Sergio Polanco MD PE at Discharge GENERAL: This is a well-nourished, well-developed patient, in no apparent distress. CARDIOVASCULAR: Regular rate and regular rhythm without murmurs, gallops, or rubs. RESPIRATORY: Clear to auscultation. Breath sounds equal bilaterally. No wheezes , rales, or rhonchi. GASTROINTESTINAL: abdomen is soft with no tenderness MUSCULOSKELETAL: Extremities without clubbing, cyanosis, or edema. NEURO: Alert & Oriented x4 to person, place, time, situation. Moves all ext x4 Hospital Course Hematoma of rectus muscle - exact etiology is uncertain but patient reports pain in right lower abdomen started after performing a sit up . - H/H fairly stable - - general surgery consult appreciated; will observe for now. -lovenox on hold History of bilateral lower extremity DVTs - Has IVC filter - continue to hold Lovenox for now due to rectus muscle hematoma Seizures - resumed home antiepileptic medications Pt Condition on Discharge: Good Discharge Disposition: Discharge Home Discharge Time: <= 30 minutes Discharge Instructions DIET: Follow Instructions for: Heart Healthy Diet Activities you can perform: Regular-No Restrictions Follow up Referrals: Oncology PCP Follow-up Continued Medications: Cyanocobalamin (Vitamin B-12) 1,000 Mcg Tab 1000 MCG PO DAILY Nutritional Supplement #1 Ref 0 BOTTLE Folic Acid (Folic Acid) 5 Mg Cap 1 MG PO DAILY Nutritional Supplement Ref 0 CAP Levetiracetam (Keppra) 1,000 Mg Tab 1500 MG PO BID Control Seizures #60 Ref 0 TAB Phenytoin Extended (Dilantin) 100 Mg Cap 100 MG PO QID Control Seizures #90 Ref 0 CAP Angela Pandya MD December 19, 2016 07:46
[2016-12-19] MEDS: levETIRAcetam 500 MG TAB PO SCH (08:39)
[2016-12-19] MEDS: PHENYTOIN SODIUM 100 MG CAP PO SCH (08:39)
[2016-12-19] MEDS: SODIUM CHLORIDE 0.9% FLUSH 10 ML FLUSH IV FLUSH SCH (08:39)
[2016-12-19 11:11] VITALS: PULSE 55
--- NOTE | 2016-12-19 16:18 | HHI.PR ---
Subjective Subjective Notes no acute issues, pain better, tolerating diet Objective Vitals/I&O Vital Signs Date Time Temp Pulse Resp B/P Pulse Ox O2 Delivery O2 Flow Rate FiO2 12/19/16 11:11 55 12/19/16 07:22 98.1 18 101/56 97 12/16/16 18:45 Room Air Cardiovascular: Regular Lungs: Clear Abdomen: Other (right sided pain mild) A/P Assessment and Plan 61 year old male with hx of DVT on Lovenox with abdominal wall hematoma -Diet as tolerated -OOB and mobilize -Continue to follow abdominal exams---showing improvement -Continue non op treatment -DC planning, ok to d/c home Jaswinder Jeffries MD December 19, 2016 16:18
== END 2016-12-19 11:26 | disposition home or self-care (01) ==
LOC: NEPC 17:06 → NEDA 20:38 → NEPGCP 21:48
PROVIDERS: ADMIT Internal Medicine; ATTEND Internal Medicine
DX: M79.81 Nontraumatic hematoma of soft tissue (principal); G40.909 Epilepsy, unspecified, not intractable, without status epilepticus; K59.00 Constipation, unspecified; Z79.01 Long term (current) use of anticoagulants; Z86.718 Personal history of other venous thrombosis and embolism; Z90.81 Acquired absence of spleen; Z87.891 Personal history of nicotine dependence
CPT/HCPCS: 74177; 80048; 80053; 81001; 85014; 85018; 85025; 85610; 85730; 96361; 96374; 96375; 99285; G0378; J2270; J2405; J7030; Q9967